=== PATIENT | female | born 1990 | race Caucasian/White ===

== ENCOUNTER 2020-02-22 14:28 | Outpatient (CLI) | payer BC ==
--- NOTE | 2020-02-22 16:26 | MRI ---
MRI BREAST W W/O CONT BILAT History: Genetic susceptibility to malignant neoplasm. Z 15.01 Comparison: Breast MRI 2019. Mammogram 10/23/2019 Findings: Multiplanar multisequence MRI was performed prior to and after the intravenous ministration of contrast. Breast are heterogeneously dense. Minimal background parenchymal enhancement. Non masslike enhancement of the left breast 11-12:00 is similar. No enhancing mass. No axillary or internal mammary adenopathy. No abnormal hepatic mass. No abnormal enhancement within the lung parenchyma. Impression: BI-RADS Category 1: Negative. Continued screening recommended.
== END 2020-02-22 14:29 | disposition home or self-care (01) ==
LOC: BICMRI 14:28
PROVIDERS: ATTEND Internal Medicine Hematology & Oncology
DX: Z15.01 Genetic susceptibility to malignant neoplasm of breast (principal); Z80.3 Family history of malignant neoplasm of breast
CPT/HCPCS: 82565; A9577; C8908

== ENCOUNTER 2020-10-27 | Outpatient (CLI) | payer BC | END 2020-10-27 14:34 | disposition home or self-care (01) | DX: Z80.3 Family history of malignant neoplasm of breast (principal); Z15.01 Genetic susceptibility to malignant neoplasm of breast | CPT/HCPCS: 77066; G0279 ==

== ENCOUNTER 2022-12-21 13:12 | Outpatient (CLI) | payer OTHER | END 2022-12-21 13:13 | disposition home or self-care (01) | LOC: BICMAMMO 13:12 | PROVIDERS: ATTEND Internal Medicine Hematology & Oncology | DX: Z15.01 Genetic susceptibility to malignant neoplasm of breast (principal) | CPT/HCPCS: 77066; G0279 ==